=== PATIENT | male | born 1970 | race Caucasian/White ===

== ENCOUNTER 2017-10-07 22:05 | Emergency (ER) | payer OTHER ==
[~2017-10-07] VITALS: Ht 172.7 cm; Wt 113.4 kg
[2017-10-07] MEDS ORDERED: LOSA25 PO (22:11)
[2017-10-07] MEDS ORDERED: Prilosec Otc20 MG (22:12)
== END 2017-10-07 23:23 | disposition home or self-care (01) ==
LOC: ER 22:05
DX: T20.10XA Burn of first degree of head, face, and neck, unspecified site, initial encounter (principal); I10 Essential (primary) hypertension; Z79.899 Other long term (current) drug therapy; X13.1XXA Other contact with steam and other hot vapors, initial encounter
CPT/HCPCS: 96372; 99283; J1885; J3010